=== PATIENT | male | born 1955 | race Caucasian/White ===

== ENCOUNTER 2023-11-20 08:54 | Day surgery (SDC) | payer OTHER, MEDICAID, SELFPAY ==
[2023-11-20] VITALS (17 sets, daily range): BP systolic 124–171; BP diastolic 69–90; BMI 28.0
[2023-11-20] MEDS: NSS 297 ML IV (09:42)
[2023-11-20] MEDS: LOW STRENGTH ASPIRIN 324 MG PO (09:45)
[2023-11-20] MEDS: NSS 1000 IV (11:17)
--- NOTE | 2023-11-20 12:11 | ITS.CL.CATH ---
[facility]ger - Catheterization
Cardiac Catheterization
Procedure Report:
CARDIAC CATHETERIZATION REPORT
Date of Procedure: 11/20/2023
Referring: Tod Chatman MD
Indication: Rheumatic mitral stenosis
HEMODYNAMIC DATA
AO: 157/78
LV: 157/14
PCWP: 21
PA: 44/24
RV: 44/12
RA: 7
Oximetry: Ao 97%, PA 73%, cardiac output 6.2, cardiac index 2.7
Simultaneous left ventricular and PCWP waveforms demonstrate moderate mitral stenosis with mean gradient 11 mmHg and calculated MVA 1.6 cm�
LEFT VENTRICULOGRAPHY: Normal left ventricular wall motion with EF 62%. There is no angiographic evidence of mitral regurgitation. There is mitral valve calcification without significant MAC
Ascending aortography: No AI seen
CORONARY ANGIOGRAPHY
Dominance: Right
Left Main: Normal
LAD: Normal
Circumflex: Normal
RCA: Normal dominant vessel
Closure Device: None-the procedure was performed via the right radial artery and right femoral vein. The Anthony's test was normal prior to the procedure.
Radiation dose (mGy): 235
DAP (cm2.Gy): 20.0
Fluoroscopy time: 4.5 minutes
CONCLUSIONS:
1. Elevated filling pressures with mild pulmonary hypertension
2. Moderate mitral stenosis with mean gradient 11 mmHg and MILTON 1.6 cm�
3. Normal left ventricular function with EF 62%
4. No evidence of significant aortic insufficiency
5. Normal coronary arteries
Copy to: Tod Chatman MD, Jhonny Rivera MD
Toribio Escobar MD, [facility], [facility]
--- NOTE | 2023-11-20 13:56 | PTCARENOTE ---
1330: Right radial band d/c'd and immediate hematoma observed at site. Manual pressure applied for 10 minutes.
1342: Right radial site reassessed; again hematoma observed and manual pressure applied until radial band replaced and inflated with 6ml air. Pt tolerating all well w/o complaints. + radial pulses appreciated. Will continue to monitor.
1350: ROSANA Vines advised of pt update. Rec'd orders to maintain band on for one hour then d/c 2ml of air each 30 minutes until band removed. Will continue to monitor.
== END 2023-11-20 17:05 | disposition home or self-care (01) ==
LOC: CATH 08:54
PROVIDERS: ATTENDING PHYSICIAN Internal Medicine Cardiovascular Disease; FAMILY PHYSICIAN Internal Medicine; OTHER PHYSICIAN Internal Medicine Cardiovascular Disease
DX: I27.20 Pulmonary hypertension, unspecified (principal); I05.0 Rheumatic mitral stenosis; I10 Essential (primary) hypertension; I48.0 Paroxysmal atrial fibrillation; E78.5 Hyperlipidemia, unspecified
CPT/HCPCS: 93460; 93567; C1894; Q9967

== ENCOUNTER → 2024-02-20 09:18 | Day surgery (SDC) | payer OTHER, MEDICAID, SELFPAY ==
--- NOTE | 2024-02-20 11:18 | ITS.CL.IMPLP ---
Nurse Tech - Implant Loop
Implant Loop
Procedure Report:
ILR implant
Date of Procedure: February 20, 2024
Patient : 1955
Procedure: Insertable Loop Recorder Implant
Indication: Arrhythmia monitoring
Implant: Reveal Linq: [email or web address]; Model# LN Q22; Serial# [id number]
Technique: The patient was prepped and draped in the usual fashion. Local anesthetic was applied to the left prepectoral subcutaneous tissue. Preoperative local sedation was given. A subcutaneous pocket was created with blunt dissection. Hemostasis
was excellent. The device was placed in the pocket. The skin was closed with steri-strips. The estimated blood loss was minimal. There were no complications.
Final Programming: FVT 231 30/40 beats
VT 176 16 beats
Asystole 3 sec
Davie 30 bpm for 4 beats
AF On AF only.
Conclusion: Uncomplicated insertable loop implant.
Recommendation: Routine Reveal care.
cc: Dr. Tod Chatman
== END | disposition home or self-care (01) ==
LOC: CATH 09:18
PROVIDERS: ATTENDING PHYSICIAN Internal Medicine Cardiovascular Disease; FAMILY PHYSICIAN Internal Medicine; OTHER PHYSICIAN Internal Medicine Cardiovascular Disease
DX: Z09 Encounter for follow-up examination after completed treatment for conditions other than malignant neoplasm (principal); I10 Essential (primary) hypertension; E78.5 Hyperlipidemia, unspecified; Z79.01 Long term (current) use of anticoagulants; I48.0 Paroxysmal atrial fibrillation
CPT/HCPCS: 33285; C1764